=== PATIENT | male | born 2000 | race Caucasian/White ===

== ENCOUNTER 2021-07-16 21:04 | Emergency (ER) | payer OTHER, SELFPAY ==
[2021-07-16 21:09] VITALS: BP 155/73; PULSE 100; RESP 14; TEMP 36.8; O2SAT 100
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
[2021-07-17] MEDS: IBUPROFEN 600 MG TABLET PO (00:16)
[2021-07-17] MEDS: HYDROcodone/acetaminophen (*CRX) 5-325 MG TABLET 1 TAB PO (00:17)
[2021-07-17] MEDS: SILVER SULFADIAZINE 1% CR 50 GM JAR (*BKC) 1 APPLIC TOPICAL (00:17)
[2021-07-17 00:58] VITALS: BP 132/78; PULSE 82; RESP 16; TEMP 37; O2SAT 100
== END 2021-07-17 01:29 | disposition home or self-care (01) ==
LOC: ANHED 07-17 00:43
PROVIDERS: Emergency Provider Emergency Medicine
DX: T23.191A Burn of first degree of multiple sites of right wrist and hand, initial encounter (principal); T31.0 Burns involving less than 10% of body surface; X10.2XXA Contact with fats and cooking oils, initial encounter; Y93.G3 Activity, cooking and baking
CPT/HCPCS: 99283; A9270

== ENCOUNTER 2021-10-06 20:38 | Emergency (ER) | payer OTHER, SELFPAY ==
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
[2021-10-06 20:41] VITALS: BP 140/62; PULSE 84; RESP 16; TEMP 36.6; O2SAT 100
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
[2021-10-06 22:02] VITALS: BP 120/80; PULSE 68; RESP 18; TEMP 36.7; O2SAT 100
[2021-10-06 23:40] VITALS: BP 136/82; PULSE 76; RESP 18; O2SAT 100
== END 2021-10-06 23:48 | disposition home or self-care (01) ==
PROVIDERS: Emergency Provider Emergency Medicine
DX: S16.1XXA Strain of muscle, fascia and tendon at neck level, initial encounter (principal); V43.52XA Car driver injured in collision with other type car in traffic accident, initial encounter
CPT/HCPCS: 72125; 99284